=== PATIENT | male | born 1965 | race African-American/Black ===

== ENCOUNTER 2016-09-30 18:03 | Emergency (ER) | payer OTHER ==
--- NOTE | 2016-09-30 19:23 | ED ---
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 Sparks immediate pain and some muscle aches, but none now. Denies any chest pain, palpitations, headache, neuro deficits at the time or now. No allev factors attempted. 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 Negative: Chest Pain, Vision Changes, Headaches, Numbness, Tingling, Weakness, Dizziness, Shortness of Breath, Syncope, Diaphoresis, Nausea, Palpitations, Back Pain, Abdominal Pain , Wheezing - Allergy/Home Medications Allergies/Adverse Reactions: Allergies Allergy/AdvReac Type Severity Reaction Status Date / Time No Known Allergies Allergy Verified 02/14/14 15:30 PMH/Surg Hx/FS Hx/Imm Hx Previously Healthy: Yes Respiratory History: Denies: Hx Chronic Obstructive Pulmonary Disease (COPD) Neurological History: Denies: Hx Dementia Infectious Disease History: No Infectious Disease History: Denies: Hx Clostridium Difficile, Hx Hepatitis, Hx Human Immunodeficiency Virus (HIV), Hx Shingles, Hx Tuberculosis, Traveled Outside the [place] in Last 30 Days - Social History Alcohol Use: None Substance Use Type: Reports: Marijuana Substance Use Comment - Amount & Last Used: this morning Smoking Status (MU): Never Smoked Tobacco Review of Systems Negative: Fever, Chills Negative: Blurred Vision, Diplopia Cardiovascular: Negative Negative: Palpitations, Chest Pain Respiratory: Negative Negative: Shortness Of Breath All Other Systems Reviewed And Are Negative: Yes Physical Exam Triage Information Reviewed: Yes Vital Signs On Initial Exam: Initial Vitals Temp Pulse Resp BP Pulse Ox 98.8 F 77 18 136/76 95 09/30/16 19:10 09/30/16 19:10 09/30/16 19:10 09/30/16 19:10 09/30/16 19:10 Vital Signs Reviewed: Yes Appearance: Positive: Well-Appearing, No Pain Distress, Well-Nourished Skin: Positive: Warm, Skin Color Reflects Adequate Perfusion, Dry, Other - No lesions, streaking, or burn sites on axilla, groin, feet or hands. Head/Face: Positive: Normal Head/Face Inspection Eyes: Positive: Normal, EOMI, MARIMAR, Conjunctiva Clear ENT: Positive: Normal ENT inspection, Hearing grossly normal, Pharyngeal erythema Neck: Positive: Supple, Nontender, No Lymphadenopathy Respiratory/Lung Sounds: Positive: Clear to Auscultation, Breath Sounds Present Cardiovascular: Positive: Normal, RRR, Pulses are Symmetrical in both Upper and Lower Extremities Abdomen Description: Positive: Nontender, No Organomegaly, Soft Musculoskeletal: Positive: Normal, Strength/ROM Intact Neurological: Positive: Normal, Sensory/Motor Intact, Alert, Oriented to Person Place, Time, CN Intact II-III, Reflexes Intact, Normal Gait. Negative: Cerebellar Dysfunction Diagnostics - Vital Signs Vital Signs Temp Pulse Resp BP Pulse Ox 09/30/16 19:10 98.8 F 77 18 136/76 95 - Laboratory Lab Statement: Any lab studies that have been ordered have been reviewed, and results considered in the medical decision making process. - EKG No standard instances Cardiac Rate: NL EKG Rhythm: Sinus Rhythm ST Segment: Normal Ectopy: None Disposition - Differential Dx - Cardiopulmonary Differential Diagnoses - Cardiopulmonary: Other - Primary concern for mild electrical shock. No myalgias to pursue renal/myositis testing for now. Referred to PCP and optometry for delayed cataract. He and understand this. EKG for arrhythmia. - Diagnoses Provider Diagnoses: Electric injury Discharge - Discharge Plan Condition: Improved Disposition: HOME Patient Education Materials: Electrical [place]iva in Adults (ED) Referrals: Gonzalez Rivers MD [Medical Doctor] - 7 Days
[2016-09-30 19:38] VITALS: BP 128/90
== END 2016-09-30 19:38 | disposition home or self-care (01) ==
LOC: ED 18:03
DX: T75.4XXA Electrocution, initial encounter (principal); W86.8XXA Exposure to other electric current, initial encounter; Y93.9 Activity, unspecified; Y92.9 Unspecified place or not applicable; R52 Pain, unspecified
CPT/HCPCS: 93005; 99282

== ENCOUNTER 2017-02-04 17:41 | Emergency (ER) | payer OTHER ==
[2017-02-04 18:24] LABS: Hematocrit 45 % (42-52); Mean Corpuscular HGB Conc 33 g/dl (31-36); Mean Corpuscular Hemoglobin 31 pg (27-31); Mean Corpuscular Volume 94 fL (80-94); Mean Platelet Volume 8 um3 (7.4-10.4); Red Blood Count 4.84 10^6/ul (4.0-5.4); Red Cell Distribution Width 14 % (10.5-15); White Blood Count 11.8 10^3/ul (3.5-10.8)
[2017-02-04 18:44] LABS: ALT 15 U/L (7-52); AST 23 U/L (13-39); Albumin 4.6 g/dL (3.2-5.2); Alkaline Phosphatase 46 U/L (34-104); Anion Gap 11 mmol/L (2-11); BUN/Creatinine Ratio 13.6 (8-20); Blood Urea Nitrogen 15 mg/dL (6-24); CO2 Carbon Dioxide 20 mmol/L (22-32); Calcium 9.5 mg/dL (8.6-10.3); Chloride 104 mmol/L (101-111); EGFR African American 90.1 (>60); Globulin 2.8 g/dL (2-4); Glucose 114 mg/dL (70-100); Potassium 3.7 mmol/L (3.5-5.0); Sodium 135 mmol/L (133-145); Total Protein 7.4 g/dL (6.4-8.9)
[2017-02-04 18:45] LABS: Urine Bilirubin Negative (Negative); Urine Glucose Negative (Negative); Urine Nitrite Negative (Negative)
[2017-02-04 19:07] LABS: Benzodiazepine Urine Screen None Detected (None Detect)
[2017-02-04 19:28] LABS: Acetaminophen < 15 mcg/mL; Alcohol < 10 mg/dL (<10); Salicylate < 2.50 mg/dL (<30)
[2017-02-04 19:38] LABS: TSH (Thyroid Stimulating Horm) 2.12 mcIU/mL (0.34-5.60)
--- NOTE | 2017-02-04 19:48 | ED ---
Psychiatric Complaint - HPI Summary HPI Summary: Patient presents to ED after posting a comment on facebook about being "better off as a memory." He denies previous anxiety or depression. He takes medications only for arthritis and does not see a counselor or psychiatrist. He denies pain. Denies SI/HI or self harm. He denies health problems and is feeling OK now. He states the comment was "dumb" to say and he regrets it as he does not feel that way now. - History Of Current Complaint Chief Complaint: EDMentalHealth Time Seen by Provider: 02/04/17 17:57 Hx Obtained From: Patient Onset/Duration: Sudden Onset Timing: Minutes Severity Initially: Mild Severity Currently: Mild Aggravating Factor(s): Nothing Alleviating Factor(s): Nothing Associated Signs And Symptoms: Positive: Negative - Risk Factor(s) Completed Suicide Risk Factors: Male - Allergies/Home Medications Allergies/Adverse Reactions: Allergies Allergy/AdvReac Type Severity Reaction Status Date / Time No Known Allergies Allergy Verified 02/14/14 15:30 Home Medications: Home Medications Ergocalciferol CAP* [Drisdol CAP*] 50,000 units PO WEEKLY 02/04/17 [History Confirmed 02/04/17] sulfaSALAzine TAB* [Azulfidine TAB*] 500 mg PO BID 02/04/17 [History Confirmed 02/04/17] PMH/Surg Hx/FS Hx/Imm Hx Previously Healthy: Yes Respiratory History: Denies: Hx Chronic Obstructive Pulmonary Disease (COPD) Neurological History: Denies: Hx Dementia - Surgical History Surgery Procedure, Year, and Place: LT WRIST FOR FX. PINS REMOVED - Immunization History Hx Pertussis Vaccination: No Immunizations Up to Date: Unable to Obtain/Confirm Infectious Disease History: No Infectious Disease History: Denies: Hx Clostridium Difficile, Hx Hepatitis, Hx Human Immunodeficiency Virus (HIV), Hx Shingles, Hx Tuberculosis, Traveled Outside the [place] in Last 30 Days - Social History Occupation: Employed Full-time Lives: With Family Alcohol Use: Daily Alcohol Amount: pt states approx 4 beers a day on average Hx Substance Use: Yes Substance Use Type: Reports: Marijuana Substance Use Comment - Amount & Last Used: this morning Hx Tobacco Use: No Smoking Status (MU): Never Smoked Tobacco Review of Systems Constitutional: Negative Eyes: Negative Cardiovascular: Negative Respiratory: Negative Positive: Arthralgia Skin: Negative Neurological: Negative Psychological: Normal All Other Systems Reviewed And Are Negative: Yes Physical Exam Triage Information Reviewed: Yes Vital Signs On Initial Exam: Initial Vitals Temp Pulse Resp Pulse Ox 98.8 F 90 20 99 02/04/17 17:53 02/04/17 17:53 02/04/17 17:53 02/04/17 17:53 Vital Signs Reviewed: Yes Appearance: Positive: Well-Appearing, Well-Nourished Skin: Positive: Warm, Skin Color Reflects Adequate Perfusion Neck: Positive: Supple, Nontender, No Lymphadenopathy Respiratory/Lung Sounds: Positive: Clear to Auscultation, Breath Sounds Present Cardiovascular: Positive: Normal, RRR, Pulses are Symmetrical in both Upper and Lower Extremities Musculoskeletal: Positive: Normal, Strength/ROM Intact Neurological: Positive: Speech Normal Psychiatric: Positive: Affect/Mood Appropriate AVPU Assessment: Alert - [place] Coma Scale Coma Scale Total: 15 Diagnostics - Vital Signs Vital Signs Temp Pulse Resp BP Pulse Ox 02/04/17 19:41 98.4 F 68 18 135/89 96 02/04/17 17:54 98.8 F 93 20 174/103 98 02/04/17 17:53 98.8 F 90 20 99 - Laboratory Lab Results: Lab Results 02/04/17 02/04/17 02/04/17 Range/Units 18:11 18:11 18:32 WBC 11.8 H (3.5-10.8) 10^3/ul RBC 4.84 (4.0-5.4) 10^6/ul Hgb 15.0 (14.0-18.0) g/dl Hct 45 (42-52) % MCV 94 (80-94) fL MCH 31 (27-31) pg MCHC 33 (31-36) g/dl RDW 14 (10.5-15) % Plt Count 242 (150-450) 10^3/ul MPV 8 (7.4-10.4) um3 Neut % (Auto) 53.2 (38-83) % Lymph % (Auto) 35.4 (25-47) % Upson % (Auto) 6.0 (1-9) % Eos % (Auto) 3.4 (0-6) % Baso % (Auto) 2.0 (0-2) % Absolute Neuts (auto) 6.3 (1.5-7.7) 10^3/ul Absolute Lymphs (auto) 4.2 (1.0-4.8) 10^3/ul Absolute Monos (auto) 0.7 (0-0.8) 10^3/ul Absolute Eos (auto) 0.4 (0-0.6) 10^3/ul Absolute Basos (auto) 0.2 (0-0.2) 10^3/ul Absolute Nucleated RBC 0.02 10^3/ul Nucleated RBC % 0.2 Sodium 135 (133-145) mmol/L Potassium 3.7 (3.5-5.0) mmol/L Chloride 104 (101-111) mmol/L Carbon Dioxide 20 L (22-32) mmol/L Anion Gap 11 (2-11) mmol/L BUN 15 (6-24) mg/dL Creatinine 1.10 (0.67-1.17) mg/dL Est GFR ( Amer) 90.1 (>60) Est GFR (Non-Af Amer) 70.0 (>60) BUN/Creatinine Ratio 13.6 (8-20) Glucose 114 H (70-100) mg/dL Calcium 9.5 (8.6-10.3) mg/dL Total Bilirubin 0.50 (0.2-1.0) mg/dL AST 23 (13-39) U/L ALT 15 (7-52) U/L Alkaline Phosphatase 46 (34-104) U/L Total Protein 7.4 (6.4-8.9) g/dL Albumin 4.6 (3.2-5.2) g/dL Globulin 2.8 (2-4) g/dL Albumin/Globulin Ratio 1.6 (1-3) TSH 2.12 (0.34-5.60) mcIU/mL Urine Color Yellow Urine Appearance Clear Urine pH 5.0 (5-9) Ur Specific [place] 1.011 (1.010-1.030) Urine Protein Negative (Negative) Urine Ketones Trace H (Negative) Urine Blood Negative (Negative) Urine Nitrate Negative (Negative) Urine Bilirubin Negative (Negative) Urine Urobilinogen Negative (Negative) Ur Leukocyte Esterase Negative (Negative) Urine Glucose Negative (Negative) Salicylates < 2.50 (<30) mg/dL Urine Opiates Screen (None Detect) Acetaminophen < 15 mcg/mL Ur Barbiturates Screen (None Detect) Ur Phencyclidine Scrn (None Detect) Ur Amphetamines Screen (None Detect) U Benzodiazepines Scrn (None Detect) Urine Cocaine Screen (None Detect) U Cannabinoids Screen (None Detect) Serum Alcohol < 10 (<10) mg/dL 02/04/17 Range/Units 18:32 WBC (3.5-10.8) 10^3/ul RBC (4.0-5.4) 10^6/ul Hgb (14.0-18.0) g/dl Hct (42-52) % MCV (80-94) fL MCH (27-31) pg MCHC (31-36) g/dl RDW (10.5-15) % Plt Count (150-450) 10^3/ul MPV (7.4-10.4) um3 Neut % (Auto) (38-83) % Lymph % (Auto) (25-47) % Upson % (Auto) (1-9) % Eos % (Auto) (0-6) % Baso % (Auto) (0-2) % Absolute Neuts (auto) (1.5-7.7) 10^3/ul Absolute Lymphs (auto) (1.0-4.8) 10^3/ul Absolute Monos (auto) (0-0.8) 10^3/ul Absolute Eos (auto) (0-0.6) 10^3/ul Absolute Basos (auto) (0-0.2) 10^3/ul Absolute Nucleated RBC 10^3/ul Nucleated RBC % Sodium (133-145) mmol/L Potassium (3.5-5.0) mmol/L Chloride (101-111) mmol/L Carbon Dioxide (22-32) mmol/L Anion Gap (2-11) mmol/L BUN (6-24) mg/dL Creatinine (0.67-1.17) mg/dL Est GFR ( Amer) (>60) Est GFR (Non-Af Amer) (>60) BUN/Creatinine Ratio (8-20) Glucose (70-100) mg/dL Calcium (8.6-10.3) mg/dL Total Bilirubin (0.2-1.0) mg/dL AST (13-39) U/L ALT (7-52) U/L Alkaline Phosphatase (34-104) U/L Total Protein (6.4-8.9) g/dL Albumin (3.2-5.2) g/dL Globulin (2-4) g/dL Albumin/Globulin Ratio (1-3) TSH (0.34-5.60) mcIU/mL Urine Color Urine Appearance Urine pH (5-9) Ur Specific [place] (1.010-1.030) Urine Protein (Negative) Urine Ketones (Negative) Urine Blood (Negative) Urine Nitrate (Negative) Urine Bilirubin (Negative) Urine Urobilinogen (Negative) Ur Leukocyte Esterase (Negative) Urine Glucose (Negative) Salicylates (<30) mg/dL Urine Opiates Screen None detected (None Detect) Acetaminophen mcg/mL Ur Barbiturates Screen None detected (None Detect) Ur Phencyclidine Scrn None detected (None Detect) Ur Amphetamines Screen None detected (None Detect) U Benzodiazepines Scrn None detected (None Detect) Urine Cocaine Screen None detected (None Detect) U Cannabinoids Screen Presumptive positive H (None Detect) Serum Alcohol (<10) mg/dL Result Diagrams: 02/04/17 18:11 02/04/17 18:11 Lab Statement: Any lab studies that have been ordered have been reviewed, and results considered in the medical decision making process. Course/Dx - Course Course Of Treatment: Patient is happy on exam. Denies SI/HI. States the comment he posted on [employer] was "dumb." Denies other complaints or history of mental illness. Patient cleared for MHU. Psych follow up. - Differential Dx/Clinical Impression Differential Diagnosis/HQI/PQRI: Positive: Bipolar Disorder, Depression, Suicidal Ideation, Suicidal Gesture Provider Diagnosis: Suicidal ideation Discharge - Discharge Plan Condition: Stable Disposition: HOME Patient Education Materials: Depression (ED) Referrals: Gonzalez Rivers MD [Primary Care Provider] - Additional Instructions: Pt was agreeable to referral to Employee Assistance Program at [facility], ([address] [place] [address], [address], [place], ph: [phone]); please call EAP to schedule an appointment. was agreeable to secure the lock to the gun safe so pt does not have access to firearms. Per completion of a mental health evaluation, you are cleared for release and do not require inpatient psychiatric hospitalization at this time. Please go to nearest emergency room or call 911 if safety concerns arise or condition worsens. Important Phone Numbers: [facility]~~ ph:[phone] Suicide Prevention and Crisis Services~~~~~~~~~~~~~~~~~~~~~~~ ph:[phone] National Suicide Prevention Lifeline~~~~~~~~~~~~~~~~~~~~~~~ ~~ ph:800-273- TALK (8255) [facility]~~~~~~~~~~~~~~~~~~ ~~ ph:[phone] Alcoholics Anonymous~~~~~~~~~~~~~~~~~~~~~~~~~~~~~~~~~~~~~~~~~~~~~~~~~ ph:[phone] [facility]~~~~~~ ~~ ph:[phone] [place] [employer] ph:[phone]
[2017-02-04 21:10] VITALS: BP 136/83
== END 2017-02-04 22:03 | disposition home or self-care (01) ==
LOC: ED 17:41
DX: R45.851 Suicidal ideations (principal)
CPT/HCPCS: 36415; 80053; 80307; 80320; 80329; 81003; 84443; 85025; 99284; G0480

== ENCOUNTER 2018-01-15 08:51 | Emergency (ER) | payer OTHER ==
--- OUTSIDE RECORDS SUMMARY | 2018-01-15 08:59 | XMS REPORT ---
:1965 External Reference #:[id number] Author Organization [facility] Address [address] [place] [address] Phone [phone] Care Team Providers Name Role Phone Gonzalez Rivers M.D. Primary Care Physician Unavailable Payers Type Date Identification Numbers Payment Provider Subscriber Commercial Policy Number: [id number] [employer] Ppo/Pos/Epo/Nap Kwasi Haider Group Number: [id number] [id number] PayID: [id number] [place] [address] Problems Date Description Provider Status Onset: 01/14/2015 Hepatitis C antibody measurement Toyin Smith O.D. Active Note: TESTED, TOOK MEDICATION FOR 12 WEEKS THEN HE WAS CLEARED OF HEP C Onset: 11/01/2016 Bilateral primary open angle glaucoma Ernesto Harmon M.D. Active Onset: 01/14/2015 Tear film insufficiency Toyin Smith O.D. Active Onset: 01/14/2015 Mild / Early Stage Glaucoma Toyin Smith O.D. Active Onset: 01/14/2015 Primary open angle glaucoma Toyin Smith O.D. 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 ETOH Use Occasionally consumes alcohol Smoking Patient is a former smoker Recreational Drug Use Denies Drug Use Daily Caffeine Consumes on average 1 liter of soda per day Daily Caffeine Consumes on average 2 cups of regular coffee per day Allergies, Adverse Reactions, Alerts Date Description Reaction Status Severity Comments 01/14/2015 NKDA active Medications Medication Date Status Form Strength Qnty SIG Indications Ordering Provider Travatan Z 01/10/ Active Solution 0.004% 15unit 1 drop both Ernesto Lakhani 2018 s eyes daily ArleFrances paredes No Active 12/21/ Hx Unknown Medications 2015 - 2017 Pred Forte 10/29/ Hx Suspension 1% 1ml One drop H40.11x1 Ernesto Lakhani 2016 - three times Arleo, 11/12/ a day after M.D. 2016 laser procedure Refresh 10/28/ Hx Solution 1.4-0.6% both eyes Ernesto CaryNissa 2016 - twice a day Arleo, 12/17/ M.D. 2015 Latanoprost 08/27/ Hx Solution 0.005% 2.5uni Instill 1 Toyin Alicea 2016 - ts Drop Into Luis, 12/17/ Each Eye AT O.D. 2016 Bedtime Cosopt 07/14/ Hx Solution 22.3-6.8mg 90day 1 drop both H40.11x1 Toyin Alicea 2014 - /ml eyes twice Luis, 10/05/ a day O.D. 2015 Timolol 06/27/ Hx Solution 0.5% 30unit Instill 1 Toyin Andre 2014 - s Drop Into [place], 07/14/ Both Eyes O.D. 2014 In The Morning No Active 01/14/ Hx Unknown Medications 2014 - 2014 Vital Signs Date Vital Result Comment 11/10/2015 BP Systolic 114 mmHg BP Diastolic 77 mmHg Heart Rate 69 /min Respiratory Rate 65 /min 11/04/2015 BP Systolic 132 mmHg BP Diastolic 72 mmHg Heart Rate 64 /min Respiratory Rate 12 /min Results Description No Information Procedures Date CPT Code Description Status 11/08/2017 15358 Scanning Computerized Ophthalmic Diagnostic Imag Completed Posterior Seg On 11/08/2017 16910 Determination Of Refractive State Completed 11/08/2017 94852 Est Patient Comprehensive Exam Completed 05/10/2017 01282 Visual Field Exam Extended Completed 05/10/2017 63175 Est Patient Intermediate Exam Completed 11/01/2016 68265 Scanning Computerized Ophthalmic Diagnostic Imag Completed Posterior Seg On 11/01/2016 70159 Determination Of Refractive State Completed 11/01/2016 29431 Est Patient Comprehensive Exam Completed 05/03/2016 70796 Visual Field Exam Extended Completed 05/03/2016 88467 Est Patient Intermediate Exam Completed 12/22/2015 31758 Est Patient Intermediate Exam Completed 11/10/2015 99200 Trabeculoplasty By Laser Surgery Completed 11/04/2015 24401 Trabeculoplasty By Laser Surgery Completed 10/30/2015 28532 Est Patient Intermediate Exam Completed 10/30/2015 11958 Gonioscopy Completed 10/30/2015 97409 Scanning Computerized Ophthalmic Diagnostic Imag Completed Posterior Seg On 08/25/2015 09280 Est Patient Intermediate Exam Completed 07/14/2015 94609 Scanning Computerized Ophthalmic Diagnostic Imag Completed Posterior Seg On 07/14/2015 02905 Visual Field Exam Extended Completed 07/14/2015 69427 Est Patient Comprehensive Exam Completed 10/22/2013 17672 Fundus Photography With Interpretation And Report Completed 10/22/2013 05059 Visual Field Exam Extended Completed 10/22/2013 36839 Est Patient Intermediate Exam Completed 10/22/2013 09667 Pachymetry Completed 10/08/2013 45951 Scanning Computerized Ophthalmic Diagnostic Imag Completed Posterior Seg On 10/08/2013 90853 Determination Of Refractive State Completed 10/08/2013 22893 New Patient Comprehensive Exam Completed Encounters Type Date Location Provider CPT E/M Dx Office Visit 10/06/2015 Ernesto Harmon MD, Toyin Smith, [address]89 H40.11x1 10:15a pc O.DNissa Office Visit 01/14/2015 Ernesto Harmon MD, Toyin Smith, [address]259 365.71 9:00a pc O.DNissa 365.11 375.15 Office Visit 07/17/2014 1:15p Ernesto Harmon MD, Toyin Smith O.D. 76025 365.71 pc Office Visit 06/05/2014 10:30a Ernesto Harmon MD, Toyin Smith O.D. 83838 365.11 pc 365.72 Office Visit 12/03/2013 8:30a Ernesto Harmon MD, Toyin Smith O.D. 68145 365.11 pc 365.71 Plan of Care 01/10/2018 - Ernesto Harmon M.D.H40.1131 Primary open-angle glaucoma, bilateral, mild stageComments:Smoking can increase the risk of developing or worsening any eye related disease, as well as affect your overall health. If you are a smoker, we strongly recommend that you quit.If you are not a smoker, we strongly recommend that you do not start. Your Glaucoma is not considered well controlled in both eyes at this time. This could mean that your eye pressure is not within your target range or your have consistent changes in your Glaucoma testing. Dr. Harmon will monitor you more closely until your Glaucoma is under control.Follow up:2 Month Follow Up IOP Check At your next visit, we are not planning to dilate your eyes. However, if you have any changes in your vision or new symptoms, there are certain situations that require us to dilate your eyes. If Dr. Harmon requests any additional testing, that may require extra time. If you have any questions before your next appointment, please call our office at .
[2018-01-15 09:32] VITALS: BP 155/105
--- NOTE | 2018-01-15 10:01 | UC ---
Dental HPI - HPI Summary HPI Summary: 53 yo male with toothache x 2 days right sided right jaw swelling no f/c unable to sleep past 2 days - History of Current Complaint Stated Complaint: TOOTH ACHE Time Seen by Provider: 01/15/18 09:31 Hx Obtained From: Patient Onset/Duration: Gradual Onset Severity: Severe Pain Intensity: 10 Pain Scale Used: 0-10 Numeric Aggravating Factor(s): Heat, Cold, Chewing Alleviating Factor(s): Nothing Related History: Previous Dental Care on Same Tooth, Swelling - Allergies/Home Medications Allergies/Adverse Reactions: Allergies Allergy/AdvReac Type Severity Reaction Status Date / Time No Known Allergies Allergy Verified 01/15/18 09:32 Home Medications: Home Medications Acetaminophen TAB* [Tylenol TAB*] 1,500 mg PO Q4H PRN 01/15/18 [History Confirmed 01/15/18] PMH/Surg Hx/FS Hx/Imm Hx Previously Healthy: Yes - Surgical History Surgical History: Yes Surgery Procedure, Year, and Place: LT WRIST FOR FX. PINS REMOVED - Family History Known Family History: Positive: Hypertension, Diabetes - Social History Alcohol Use: Occasionally Alcohol Amount: pt states approx 4 beers a day on average Substance Use Type: Marijuana Substance Use Comment - Amount & Last Used: this morning Smoking Status (MU): Never Smoked Tobacco Review of Systems Constitutional: Negative Skin: Negative Eyes: Negative ENT: Dental Pain Respiratory: Negative Cardiovascular: Negative Gastrointestinal: Negative Genitourinary: Negative Motor: Negative Neurovascular: Negative Musculoskeletal: Negative Neurological: Negative Psychological: Negative Is Patient Immunocompromised?: No All Other Systems Reviewed And Are Negative: Yes Physical Exam Triage Information Reviewed: Yes Appearance: Well-Appearing, No Pain Distress, Well-Nourished Vital Signs: Initial Vital Signs Temp 97.2 F 01/15/18 09:27 Pulse 70 01/15/18 09:27 Resp 16 01/15/18 09:27 BP 155/105 01/15/18 09:27 Pulse Ox 98 01/15/18 09:27 Vital Signs Reviewed: Yes Eyes: Positive: Conjunctiva Clear ENT: Positive: Hearing grossly normal, Dental tenderness, Uvula midline. Negative: Nasal congestion, Nasal drainage, Tonsillar swelling, Tonsillar exudate, Trismus, Muffled voice Dental: Positive: Gross Decay/Caries @, Abscess @ Neck: Positive: Supple, Nontender, No Lymphadenopathy Respiratory: Positive: Lungs clear, Normal breath sounds, No respiratory distress Cardiovascular: Positive: RRR, No Murmur Musculoskeletal: Positive: ROM Intact, No Edema Neurological: Positive: Alert Psychological Exam: Normal Skin Exam: Normal Dental Complaint Course/Dx - Course Course Of Treatment: ISTOP ref # [id number] - Differential Dx/Diagnosis Provider Diagnoses: dental abscess Discharge - Sign-Out/Discharge Documenting (check all that apply): Discharge/Admit/Transfer - Discharge Plan Condition: Stable Disposition: HOME Prescriptions: HYDROcodone/ACETAMIN 5-325 MG* [Kent 5-325 TAB*] 1 tab PO Q4H PRN #5 tab MDD 5 PRN Reason: Pain - Severe Penicillin VK TAB* [Penicillin Vk Tab*] 500 mg PO QID #28 tab Patient Education Materials: Dental Abscess (ED) Referrals: Gonzalez Rivers MD [Primary Care Provider] - (I suggest BP recheck in 2-4 weeks) Additional Instructions: take three more doses of penicillin today take advil or aleve See your dentist gordon to er for new or worsening symptoms I suggest BP recheck with your MD It was high here but that may be due to your severe pain - Billing Disposition and Condition Condition: STABLE Disposition: HOME Images Dental: 1 - abscess
[2018-01-15] MEDS ORDERED: Penicillin VK TAB* 250 MG PO ONE (10:07)
[2018-01-15] MEDS ORDERED: Ketorolac INJ* 30 MG/ML 1 ML VIAL IM ONE (10:07)
== END 2018-01-15 10:45 | disposition home or self-care (01) ==
LOC: UCEAST 08:51
DX: K04.7 Periapical abscess without sinus (principal)
CPT/HCPCS: 96372; 99212; A9270-GY; G0463; J1885